=== PATIENT | male | born 1955 | race Caucasian/White ===

== ENCOUNTER 2016-05-13 14:56 | Inpatient (IN) | payer OTHER ==
[~2016-05-13] VITALS: Ht 165.1 cm; Wt 85.7 kg
--- NOTE | 2016-05-13 15:13 | NUR ---
DR WALLS VIEWED EKG - UNABLE TO SIGN DUE TO BEING STERILE PUTTING A CENTRAL LINE IN ANOTHER PATIENT. EKG PLACED WITH CHART - PLEASE HAVE SIGNED WHEN MD ABLE.
--- NOTE | 2016-05-13 15:13 | NUR ---
60 Y/O MALE C/O FEELING "HEART RACING, MY LEGS ARE HEAVY WHEN I WALK ... LIKE IM NOT GETTING ENOUGH AIR .. SWEATING .." - SYMPTOMS ONSET 0900 TODAY. ALSO FEELS SOB. DENIES PAIN. EKG COMPLETED AND SHOWS SINUS BRADYCARDIA WITH RATE 31. TAKEN TO ROOM 1 FOR EVAL/MONITORING.
--- NOTE | 2016-05-13 15:31 | ED CARDIAC/CP/PALPITATIONS ---
History of Present Illness General Chief Complaint: General Adult Stated Complaint: WEAKNESS/PALP/ELAVATED BLD SUGAR Exam Limitations: no limitations Vital Signs & Intake/Output Vital Signs & Intake/Output Vital Signs Date Time Temp Pulse Resp B/P Pulse O2 O2 Flow FiO2 Ox Delivery Rate 05/13 1922 94 Nasal 2.0L Cannula 05/13 1756 97.3 50 16 125/66 94 Nasal 2.0L Cannula 05/13 1607 55 16 130/66 93 Nasal 3.0L Cannula 05/13 1513 97.2 40 16 95/51 88 Room Air 05/13 1508 97.2 31 16 95/51 97 Room Air Allergies Coded Allergies: NO KNOWN ALLERGIES (08/04/11) Triage Note: 60 Y/O MALE C/O FEELING "HEART RACING, MY LEGS ARE HEAVY WHEN I WALK ... LIKE IM NOT GETTING ENOUGH AIR .. SWEATING .." - SYMPTOMS ONSET 0900 TODAY. ALSO FEELS SOB. DENIES PAIN. EKG COMPLETED AND SHOWS SINUS BRADYCARDIA WITH RATE 31. TAKEN TO ROOM 1 FOR EVAL/MONITORING. Triage Nurses Notes Reviewed? yes Onset: Abrupt Duration: hour(s):, constant, continues in ED Timing: recent history Quality/Severity: moderate, severe HPI: 60-year-old male comes into emergency room for further evaluation after feeling lightheaded and dizzy since this morning like he was going to pass out. Denies any chest pain. Some mild shortness of breath and diaphoretic. Patient sees a child and adolescent therapist out of [place]. Denies any other associated symptoms. Denies any pain anywhere currently. (VICKY HURTADO,KHADAR) General Source: patient Reconcile Medications Buprenorphine HCl/Naloxone HCl (Suboxone 8 MG-2 MG Sl Film) 8 MG-2 MG FILM 1 STR SL DAILY Mental health (Reported) Diltiazem HCl (Cardizem Cd) 360 MG CAP.ER.24H 1 CAP PO DAILY HTN (Reported) Glimepiride 1 MG TABLET 1 TAB PO DAILY DM (Reported) Lisinopril 20 MG TABLET 1 TAB PO DAILY HTN (Reported) Metformin HCl 1,000 MG TABLET 1 TAB PO BID DM (Reported) Nadolol 20 MG TABLET 1 TAB PO DAILY Heart health (Reported) Rosuvastatin Calcium (Crestor) 40 MG TABLET 1 TAB PO DAILY LIPID (Reported) Sitagliptin Phosphate (Januvia) 100 MG TABLET 1 TAB PO DAILY DM (Reported) Triamterene/Hydrochlorothiazid (Triamterene-Hctz 37.5-25 MG Tb) 37.5 MG-25 MG TABLET 1 TAB PO DAILY HTN (Reported) (KATE WALLS DO) Past History Travel History Traveled to [place] past 21 day No Medical History Any Pertinent Medical History? see below for history Neurological: NONE EENT: NONE Cardiovascular: hypertension, myocardial infarction, HIGH CHOLESTEROL Respiratory: NONE Gastrointestinal: NONE Hepatic: NONE Renal: NONE Musculoskeletal: NONE Psychiatric: NONE Endocrine: diabetes Blood Disorders: NONE Cancer(s): NONE REGISTRY NURSE/Reproductive: NONE Pneumonia Vaccine: 11/02/06 Surgical History Surgical History: non-contributory Psychosocial History What is your primary language Kazakh Tobacco Use: Quit >30 days ago Family History Hx Contributory? No (KHADAR TUBBS) Review of Systems Review of Systems Constitutional: Reports: see HPI. EENTM: Reports: no symptoms. Respiratory: Reports: see HPI. Cardiovascular: Reports: see HPI. GI: Reports: no symptoms. Genitourinary: Reports: no symptoms. Musculoskeletal: Reports: no symptoms. Skin: Reports: no symptoms. Neurological/Psychological: Reports: no symptoms. Hematologic/Endocrine: Reports: no symptoms. Immunologic/Allergic: Reports: no symptoms. All Other Systems: Reviewed and Negative (KHADAR TUBBS) Physical Exam Physical Exam General Appearance: well developed/nourished, alert, awake, mild distress Head: atraumatic Eyes: Bilateral: normal appearance, EOMI. Ears, Nose, Throat: normal pharynx, normal ENT inspection Neck: normal inspection Respiratory: normal breath sounds, no respiratory distress Cardiovascular: bradycardia Back: normal inspection Extremities: normal inspection, normal range of motion Neurologic/Psych: awake, alert, oriented x 3, normal gait, normal mood/affect Skin: intact, normal color Core Measures ACS in differential dx? No Severe Sepsis Present: No Septic Shock Present: No (KHADAR TUBBS) Progress Differential Diagnosis: AMI, aortic dissection, cholecystitis, CHF/pulm edema, costochondritis, hyperkalemia, hypovolemia, hyperthyroid, myocarditis, pancreatitis, pericarditis, pneumonia, pneumothorax, pulmonary embolism, PUD/ GERD, PVCs/PACs, respiratory failure, rib fracture, sepsis, unstable angina, V- fib/V-Tach, WPW syndrome Plan of Care: Orders Procedure Date/time Status Consistent Carbohydrate 2 05/14 B Active TROPONIN LEVEL 05/14 0500 Active ICU LAB BUNDLE 05/14 0500 Active EKG 05/14 0500 Active TROPONIN LEVEL 05/13 2130 Active EKG 05/13 2130 Active Wound Care/Dressing 05/13 192 Complete Weight 05/13 1921 Active VTE Mechanical Prophylaxis 05/13 192 Active Vital Signs 05/13 192 Active Turn and Reposition 05/13 192 Complete Drains/Tubes 05/13 192 Complete Teach/Educate 05/13 192 Active Skin Integrity Protocol 05/13 192 Complete Skin/Pressure Ulcer Assess (Sk 05/13 192 Active Precautions 05/13 192 Active Pain Treatment and Response 05/13 192 Active Nutritional Intake, Monitor 05/13 192 Active Isolation 05/13 192 Active CIWA 05/13 1920 Complete Patient Care Conference 05/13 192 Active Activity/Ambulation 05/13 192 Active Pathway - chart 05/13 1838 Active Telemetry/Solid Die Cutter 05/13 1756 Active VRE ACTIVE SURVIELLANCE 05/13 1744 Active ACTIVE SURVEILLANCE NARES 05/13 1744 Active Add-on Test (ER Only) 05/13 1741 Active Pathway - chart 05/13 1711 Active House Staff 05/13 1711 Active Patient Data 05/13 1711 Active Code Status 05/13 1711 Active Admit to inpatient 05/13 1707 Active Patient Data 05/13 1700 Active Intake & Output 05/13 1559 Active LYME TITRE 05/13 1526 Active THYROID STIMULATING HORMONE 05/13 1519 Complete TROPONIN LEVEL 05/13 1519 Complete COMPREHENSIVE METABOLIC PANEL 05/13 1519 Complete CBC WITHOUT DIFFERENTIAL 05/13 1519 Complete EKG 05/13 1458 Active ECHOCARDIOGRAM 05/13 0600 Active VTE Mechanical Prophylaxis 05/13 UNK Active FingerStick- Glucose 05/13 UNK Active Current Medications Sig/Luis Start time Last Medication Dose Stop Time Status Admin Atorvastatin Calcium 40 MG 1700 05/14 1700 AC (Lipitor) Insulin Aspart 0 TIDAC 05/14 0800 AC (NovoLOG) Acetaminophen 650 MG Q6P PRN 05/13 1845 AC (Tylenol) Acetaminophen 650 MG Q4P PRN 05/13 1845 AC (Tylenol) Acetaminophen 1,000 MG Q4P PRN 05/13 1845 AC (Tylenol) Laboratory Tests 05/13/16 1526: Anion Gap 11, Estimated GFR > 60, BUN/Creatinine Ratio 26.7 H, Glucose 353 H, Calcium 10.3 H, Total Bilirubin 0.6, AST 57, ALT 82 H, Alkaline Phosphatase 63 , Troponin I 0.19 *H, Total Protein 6.9, Albumin 4.1, Globulin 2.8, Albumin/ Globulin Ratio 1.5, TSH 2.550, CBC w Diff NO MAN DIFF REQ, RBC 5.21, MCV 88.5, MCH 28.6, RDW 13.9, MPV 8.4, Gran % 77.4 H, Lymphocytes % 13.1 L, Monocytes % 7.7, Eosinophils % 1.3, Basophils % 0.5, Absolute Granulocytes 8.3 H, Absolute Lymphocytes 1.4, Absolute Monocytes 0.8 H, Absolute Eosinophils 0.1, Absolute Basophils 0, PUBS MCHC 32.3 L, Lyme Disease Antibody Pending Microbiology 05/13 1916 UPPER RESP: Surveillance Culture - RECD 05/13 174 GI: Surveillance Culture - COLB Diagnostic Imaging: Viewed by Me: Radiology Read. Discussed w/RAD: Radiology Read. Radiology Impression: SERVICE DATE: 05/13/16 EXAM TYPE: RAD - XRY- PORTABLE CHEST XRAY EXAMINATION: XR PORTABLE CHEST CLINICAL INFORMATION: Shortness of breath. COMPARISON: Chest x-ray 11/01/2006 TECHNIQUE: Portable AP view of the chest was obtained. 3:41 PM FINDINGS: Status post median sternotomy. Heart size is normal. No pulmonary vascular congestion. No infiltrate or pleural effusion. No pneumothorax. IMPRESSION: No acute abnormality of the chest. Initial ED EKG: normal sinus rhythm, rate (30) Comments: 05/13/2016 5:55:14 PM Patient required critical care management upon arrival. Patient was seen immediately upon arrival. Dr. Walls. Was at bedside with the patient as well. Patient was given glucagon. Bradycardia improved. Blood pressure improved. Patient will require critical care in ICU for further evaluation and observation on cardiac cath tech. (KHADAR TUBBS) Departure Departure Disposition: STILL A PATIENT Condition: Stable Clinical Impression Primary Impression: Symptomatic sinus bradycardia Secondary Impressions: Elevated troponin Referrals: PATIENT HAS NO PRIMARY CARE DR Departure Forms: Customer Survey General Discharge Information (KHADAR TUBBS) Departure Comments 3/15/17 5 PM I have seen and personally examined the patient and I agree with the PAs evaluation. This is a 60-year-old man who presented to the emergency department with dizziness and diaphoresis. The patient states he was in his usual state of health until today. He said suddenly at 9 AM he started to feel weak and dizzy. He denies chest pain or shortness of breath. He had a resting heart rate in the 30s. EKG shows sinus bradycardia; he is on Nadolol he's been taking it for some time. The onset of symptoms was abrupt, the duration was just today, the severity is significant as his symptoms required to come to the emergency department for care. On physical exam he is awake alert and oriented 3. He is mildly diaphoretic. Heart is bradycardic; lungs are clear. His EKG shows a sinus bradycardia. He was given IV fluids. Dr. Warren was contacted and is admitting him to the ICU for further care. We will hold his enalapril and observe him on the monitor tech Admission Note Spoke With: BETTINA WARREN MD Documentation of Exam: Documentation of any treatments & extenuating circumstances including Concerns Regarding Discharge (functional status, medication knowledge or non-compliance, living conditions, etc.) that warrant an admission rather than observation: [The patient needs admission to the ICU for IV fluids, telemetry monitoring, cardiology consultation, follow the Lyme titer, consideration of pacemaker insertion, he has profound bradycardia] PA/CUSTOMER OPERATIONS REPRESENTATIVE Co-Sign Statement Statement: ED Attending supervision documentation- [] I saw and evaluated the patient. I have also reviewed all the pertinent lab results and diagnostic results. I agree with the findings and the plan of care as documented in the PA's/CUSTOMER OPERATIONS REPRESENTATIVE's documentation. [X] I have reviewed the ED Record and agree with the PA's/CUSTOMER OPERATIONS REPRESENTATIVE's documentation. [] Additions or exceptions (if any) to the PAs/CUSTOMER OPERATIONS REPRESENTATIVE's note and plan are summarized below: [] (KATE WALLS DO) Critical Care Note Critical Care Note Critical Care Time: 30-74 min (35) (KHADAR TUBBS)
[2016-05-13 15:42] LABS: ABSOLUTE BASOPHIL COUNT 0 /CUMM (0.0-0.2); ABSOLUTE EOSINOPHIL COUNT 0.1 /CUMM (0.0-0.7); ABSOLUTE GRANULOCYTE CT 8.3 /CUMM (1.4-6.5); ABSOLUTE LYMPH COUNT 1.4 /CUMM (1.2-3.4); ABSOLUTE MONOCYTE COUNT 0.8 /CUMM (0.10-0.60); BASOPHIL % 0.5 % (0.0-2.0); EOSINOPHIL % 1.3 % (0-5); GRANULOCYTE % 77.4 % (42.2-75.2); HEMATOCRIT 46.1 % (42-52); MEAN CORPUSCULAR HGB 28.6 PG (27.0-31.0); MEAN CORPUSCULAR HGB CONC 32.3 G/DL (33.0-37.0); MEAN CORPUSCULAR VOLUME 88.5 FL (80.0-94.0); MEAN PLATELET VOLUME 8.4 FL (7.4-10.4); PLATELET COUNT 241 /CUMM (130-400); RBC DISTRIBUTION WIDTH 13.9 % (11.5-14.5); RED BLOOD CELL CT 5.21 /CUMM (4.70-6.10); WHITE BLOOD CELL COUNT 10.7 /CUMM (4.8-10.8)
--- NOTE | 2016-05-13 15:43 | NUR ---
RADIOLOGY TO BEDSIDE FOR PCXY.
--- NOTE | 2016-05-13 15:51 | NUR ---
pt rate at 33 and regular, slow ppush of glucagon given over 3 minutes, pt tolerated well. will continue to monitor closely
--- NOTE | 2016-05-13 15:55 | NUR ---
PT CARE ASSUMED BY THIS RN AT THIS TIME. PT LAYING ON STRETCHER WITH EYES CLOSED. REPORTS HE FEELS BETTER DENIES CP, SOB. PT SPOUSE REPORTS OR WHEN HE WAS 33 AND QUADRUPLE BYPASS IN 1991. NS BOLUS HUNG PER EMAR. PT CONTINUES ON MONITOR HR SB IN THE 30'S, PACER PADS IN PLACE.
--- NOTE | 2016-05-13 16:00 | NUR ---
PT RATE NOTED TI IN THE 50'S SINUS JOON AT THIS TIME.
--- NOTE | 2016-05-13 16:16 | RADIOLOGY REPORT ---
EXAMINATION: XR PORTABLE CHEST CLINICAL INFORMATION: Shortness of breath. COMPARISON: Chest x-ray 11/01/2006 TECHNIQUE: Portable AP view of the chest was obtained. 3:41 PM FINDINGS: Status post median sternotomy. Heart size is normal. No pulmonary vascular congestion. No infiltrate or pleural effusion. No pneumothorax. IMPRESSION: No acute abnormality of the chest.
--- NOTE | 2016-05-13 16:41 | NUR ---
CRITICAL TEST RESULTS [id number] SHANTELLE ALICEA 60 M TESTS AND RESULTS: TROPONIN .19 Results received and read back by: SKYE CULLEN Results received date and time: 05/13/16 1641 The following provider was notified of the results, and read the results back: GENESIS PERRY Notified date and time: 05/13/16 at 1641
--- NOTE | 2016-05-13 17:14 | History & Physical ---
NICOLE JOHNSON MD 05/13/16 7494: General Information and HPI MD Statement: I have seen and personally examined SHANTELLE ALICEA and documented this H&P. The patient is a 60 year old M who presented with a patient stated chief complaint of [weakness]. Source of Information: patient Exam Limitations: no limitations History of Present Illness: 60-year-old male with PMH of HTN, MIX2 (sp stent and quadruple bypass), NIDDM, HLD, opiate dependence on suboxone, presented to ED for weakness, shortness of breath, diaphoresis, heavy legs and arms on exertion, with feelings of heart racing that started at 830 or 9am the day of admission. He felt like he was having an anxiety attack. He took 2 pills of baby aspirin prior to coming to ED. Initial EKG showed sinus bradycardia, in low 30s, which could be medication induced as pt takes nadolol and diltiazem. Pt received glucagon and 1L nS in the ED. His Bp was initially 95/51, subsequently improved to 130/60. During our examination, his HR ranged between 55-60 and pt was feeling improved, stating that "maybe I shouldn't have came". However, he was noted to prefer having his eyes closed during history and physical exam, reportedly because he was feeling tired because he has not had a good night sleep. He also reports neck stiffness that has been chronic. Although he said he was feeling better, he was noticably fatigued. He had his first IA when he was 33, for which he was stented. At the age of 43, he had another IA for which he had quadruple bypass. During those episodes, he only reported jaw pain, denies chest pain and arm pain. Currently denying pain anywhere and does not feel this is another episode of IA. However, he is diabetic. He follows up with Dr. Eric Chávez at [place] for cardiology. He has > 80 pack year smoking hx, quit 2 years ago, now vaping. He had opiate dependence, quit in 2005, now on suboxone. He denies dizziness. His belly was noticably distended, however that has been chronic, and he has abdominal hernia. Allergies/Medications Allergies: Coded Allergies: NO KNOWN ALLERGIES (08/04/11) Home Med list Buprenorphine HCl/Naloxone HCl (Suboxone 8 MG-2 MG Sl Film) 8 MG-2 MG FILM 1 STR SL DAILY Mental health (Reported) Diltiazem HCl (Cardizem Cd) 360 MG CAP.ER.24H 1 CAP PO DAILY HTN (Reported) Glimepiride 1 MG TABLET 1 TAB PO DAILY DM (Reported) Lisinopril 20 MG TABLET 1 TAB PO DAILY HTN (Reported) Metformin HCl 1,000 MG TABLET 1 TAB PO BID DM (Reported) Nadolol 20 MG TABLET 1 TAB PO DAILY Heart health (Reported) Rosuvastatin Calcium (Crestor) 40 MG TABLET 1 TAB PO DAILY LIPID (Reported) Sitagliptin Phosphate (Januvia) 100 MG TABLET 1 TAB PO DAILY DM (Reported) Triamterene/Hydrochlorothiazid (Triamterene-Hctz 37.5-25 MG Tb) 37.5 MG-25 MG TABLET 1 TAB PO DAILY HTN (Reported) Past History Travel History Traveled to [place] past 21 day No Medical History Neurological: NONE EENT: NONE Cardiovascular: hypertension, myocardial infarction, HIGH CHOLESTEROL Respiratory: NONE Gastrointestinal: NONE Hepatic: NONE Renal: NONE Musculoskeletal: NONE Psychiatric: NONE Endocrine: diabetes Blood Disorders: NONE Cancer(s): NONE SUPPLY CHAIN TECH/Reproductive: NONE Pneumonia Vaccine: 11/02/06 Surgical History Surgical History: quadruple bypass Past Family/Social History Family History Relations & Conditions if any Relation not specified for: FH: diabetes mellitus Psychosocial History Where do you live? Home Who Do You Live With? spouse Smoking Status: Former Smoker Illicit Drug Use: denies illicit drug use Functional Ability ADLs Independent: dressing, eating, toileting, bathing. Ambulation: independent IADLs Independent: shopping, housework, finances, food prep, telephone, transportation , medication admin. Review of Systems Review of Systems Constitutional: Reports: malaise, weakness. Denies: chills, fever. EENTM: Denies: visual changes. Cardiovascular: Reports: palpitations. Denies: chest pain, edema, orthopena, peripheral edema, syncope. Respiratory: Reports: short of breath. Denies: cough, sputum production. GI: Denies: abdominal pain, bloating, constipation, diarrhea. Genitourinary: Denies: dysuria. Exam & Diagnostic Data Last 24 Hrs of Vital Signs/I&O Vital Signs Date Time Temp Pulse Resp B/P Pulse O2 O2 Flow FiO2 Ox Delivery Rate 05/13 1756 97.3 50 16 125/66 94 Nasal 2.0L Cannula 05/13 1607 55 16 130/66 93 Nasal 3.0L Cannula 05/13 1513 97.2 40 16 95/51 88 Room Air 05/13 1508 97.2 31 16 95/51 97 Room Air Intake & Output 05/13 1600 05/13 0800 05/13 0000 Intake Total 1000 Output Total Balance 1000 Intake, IV 1000 Patient 85.275 kg Weight Physical Exam General Appearance Alert, Oriented X3, Cooperative, seems fatigued Skin No Significant Lesion HEENT Atraumatic Cardiovascular Normal S1, Normal S2 Lungs Clear to Auscultation, Normal Air Movement Abdomen Normal Bowel Sounds, Soft, No Tenderness, abdominal hernia Neurological Normal Speech Extremities No Edema Last 24 Hrs of Labs/Thomas: Laboratory Tests 05/13/16 1526: Anion Gap 11, Estimated GFR > 60, BUN/Creatinine Ratio 26.7 H, Glucose 353 H, Calcium 10.3 H, Total Bilirubin 0.6, AST 57, ALT 82 H, Alkaline Phosphatase 63 , Troponin I 0.19 *H, Total Protein 6.9, Albumin 4.1, Globulin 2.8, Albumin/ Globulin Ratio 1.5, TSH 2.550, CBC w Diff NO MAN DIFF REQ, RBC 5.21, MCV 88.5, MCH 28.6, RDW 13.9, MPV 8.4, Gran % 77.4 H, Lymphocytes % 13.1 L, Monocytes % 7.7, Eosinophils % 1.3, Basophils % 0.5, Absolute Granulocytes 8.3 H, Absolute Lymphocytes 1.4, Absolute Monocytes 0.8 H, Absolute Eosinophils 0.1, Absolute Basophils 0, PUBS MCHC 32.3 L, Lyme Disease Antibody Pending Microbiology 05/14 1743 UPPER RESP: Surveillance Culture - COLB 05/14 1743 GI: Surveillance Culture - COLB Diagnostic Data EKG Results SB in low 30s CXR Results No acute abnormality of the chest. Assessment/Plan Assessment: 60-year-old male with PMH of HTN, MIX2 (sp stent and quadruple bypass), NIDDM, HLD, opiate dependence on suboxone, presented to ED for weakness, shortness of breath, diaphoresis, heavy legs and arms on exertion, with feelings of heart racing. Initial EKG showed sinus bradycardia, in low 30s, which could be medication induced as pt takes nadolol and diltiazem, and BP of 95/51. HR and BP improved with glucagon and 1L NS. During our examination, his HR ranged between 55-60 and pt was feeling improved.Pt might also have NSTEMI (positive troponin, positive history). Pt admitted to ICU with the following active problems: # Symptomatic sinus bradycardia could be medication induced # Positive troponin could be NSTEMI vs type II IA # Hyponatremia, Elevated K,Bun,Cr, hyperglycemia # History of HTN and HLD # NIDDM # Symptomatic sinus bradycardia - Given glucagon X1 and 1L NS in ED - Desat to 88% on RA * Hold nadolol and diltiazem * Pacer and atropine at bedside * Follow Echocardiogram * Follow lyme ab * Keep on O2 via NC to keep spo2 > 92% # Positive troponin worrisome for NSTEMI, 0.19. Pt had history of IA at a young age, 33 (had stent), 43 (had quadruple bypass), with only jaw pain. He also has diabetes which could mask typical chest pain in ACS. * Serial EKG and trop 930pm and 530am * Consider starting heparin drip for NSTEMI if troponin continues to increase # History of HTN and HLD * Continue statin * Hold lisinopril, hctz, triamterene for hypotension in ed # Hyponatremia, Elevated K,Bun,Cr, hyperglycemia - On admission Na 133, K 5.9, Bun 32, Cr 1.2 , glucose 353 * Trend it # NIDDM * Hold home glimepiride, metformin januvia * Accucheck and Novolog ss # Hx of abdominal hernia # Hold home meds Suboxone Diet: CC2 DVT ppx: mech and pharm FULL CODE As Ranked By This Provider Problem List: 1. Symptomatic sinus bradycardia 2. Elevated troponin Core Measures/Miscellaneous Acute Coronary Syndrome ACS Diagnosis: No Cerebrovascular Accident CVA/TIA Diagnosis: No Congestive Heart Failure CHF Diagnosis: No Venous Thromboembolism VTE Risk Factors: Age > 40 No Mech VTE prophylaxis d/t: No contraindications No VTE Pharm Prophylaxis d/t: No contraindications VTE Diagnosis: No VTE Type: NONE VTE Confirmed by (Test): NONE Severe Sepsis Severe Sepsis Present: No Septic Shock Septic Shock Present: No Miscellaneous Documentation Attending Case Discussed With: BETTINA WARREN MD Primary Care Physician: FORTINO LIZARRAGA MD Patient sees these Specialists Dr. Eric Chávez in [place] (cardiology) Level of Patient Care: Critical Care (CRI) RAGINI AREVALO 05/13/16 6938: Resident Review Statement Resident Statement: examined this patient, discussed with internal combustion engine subassembler, agreed with internal combustion engine subassembler, discussed with family, reviewed EMR data (avail), discussed with nursing , discussed with case mgmt, reviewed images, amended to note Other Findings: 60-year-old gentleman presented at the emergency room with a complaint of generalized weakness. Patient reports around 9 AM this morning he started feeling extremely tired and clammy. His symptoms tend to aggravate with physical exertion and improved with rest. During the day his symptomatology persisted and opted him to present to the emergency room for further workup. patinet denies any other major significant change in his health. He denies any associated symptoms of chest pain, lightheadedness, dizziness, breathlessness, loss of consciousness the/fall, focal neurologic changes(change in vision, focal motor sensory deficits). He is a former heavy smoker 2 packs per day for more than 40 years quit 2 years ago, hypertension, DM, Hx of IA, status post stent placement 35 years ago and triple or quadruple bypass about 25 years ago, for which she follows with his sander wooden pencils, Eric Lorenzo M.D. he is on diltiazem, nadolol, triamterene/HCTZ, and lisinopril. According to patient this morning despite not feeling well he took all his a.m. pills. Has a history of opiate abuse quit about 2 years ago currently on Suboxone denies any recent use of opiods. 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 Review of system: Patient reports extreme fatigue and sleepiness. Physical exam : General appearance alert and oriented 3 not in acute distress, follows verbal commands. Head and neck: dry Mucous membranes no JVD, CV: S1 S2 no murmur, lungs are clear, no peripheral edema no cyanosis, FRUIT SORTER: wnl. Neurology exam: No focal motor sensory deficit. Initial vital signs: Pulse rate of 40 blood pressure 95/51, O2 saturation 88% in room air. Patient was administered glucagon and 1 L bolus normal saline and bradycardia improved, from heart rate of 32 heart rate of 40-50 beats per minutes. Patient remained hemodynamically stable and asymptomatic. Latest vital signs: Pulse rate 50, blood pressure 125/66 pulse ox 94 on 2 L. Chest x-ray: No acute abnormality was reported. ECG: Sinus bradycardia with rate of 30-40, normal axis, no acute ST-T segment change, no prolongation of MI no prolongation of QT. CBC: wnl BEP: Sodium 133 potassium 5.9 BUN 32 creatinine 1.2 BUN/creatinine ratio 26.7 troponin 0.19 NICO score: 4 associatd w/ 20% mortality moderate risk group Assessment 60-year-old gentleman with significant cardiac history was admitted for symptomatic sinus bradycardia and elevated troponin. List of active problems 1) sinus bradycardia: Patient is hemodynamically stable and his bradycardia improved with glucagon. Except for elevated troponin patient does not have any other concerning findings. Except for IA which needs to be ruled out, hypothyroidism is another differential diagnosis, patient does not have any symptoms of active infection, and other alternative diagnosis for this patient is a side effect of his medication including beta blockers and nondeviated. Calcium channel blockers. 2) elevated troponin: Secondary to severe bradycardia versus NSTEMI or unstable angina 3) DM 4) hyperkalemia and elevated creatinineL: Could be related to dehydration VS diabetic nephropathy with exaggerated hyperkalemia due to use of lisinopril Plan #1 admit to ICU for continuous monitoring #2 IV atropine 0.5 mg push at bedside for episodes of symptomatic bradycardia #3 if bradycardia did not improve with repeated doses of atropine patient probably needs percutaneous pacemaker #4 stop his AV blocking medication including beta blockers and nondeviated refraining calcium channel blockers #5 stop his antihypertensive medication until tomorrow morning- lisinopril and trimethoprim/hydrochlorothiazide #6 continue IV hydration with normal saline 100 mL per hour #7 obtained records from his sander wooden pencils #8 check TSH- normal #9 check lyme titer-pending #10 Echo Elevated troponin #1 trending troponin every 8 hours+ ecg #2 if troponin was trending of initiates managing NSTEMI: load w/ ASA 325 mg + nitrate SL + morphine #3 continue his daily lipitpor #4 patient is not in respiratory distress there is no need for oxygen supplementation unless patient desaturated DM #1 Carbohydrates diets 2 #2 fingersticks 3 times a day before meals #3 stop metformin and Januvia, start on NovoLog sliding scale medium dose pre- meal and at bedtime Hyperkalemia and elevated creatinine: #1 IV hydration #2 ICU bundle in the a.m. #3 possible nephro consult as an outpatient to consider the need of renal biopsy Mild pain pathway-on Suboxone cannot take opiate pain medication Full code KELVIN ASHLEY,BETTINA 05/14/16 1019: Attending MD Review Statement Attending Statement Attending MD Statement: examined this patient, discuss w/resident/PA/CONTRACTING ENGINEER, agreed w/resident/PA/CONTRACTING ENGINEER, discussed with family, reviewed EMR data (avail), discussed with nursing, reviewed images, amended to note Attending Assessment/Plan: Agree with housestaff note above. The patient is a 60-year-old male with history of hypertension, diabetes mellitus, CAD, myocardial infarction, status post CABG and coronary stents who is admitted for bradycardia. He presented to the emergency department with complaint of weakness, heaviness in his legs, and palpitations. He was noted to be in sinus bradycardia in the 30s. His sander wooden pencils is Dr. Lorenzo in [place]. He takes both Cardizem CD and atenolol. He notes that in the past he has had similar symptoms when he accidentally took more than one pill. He states that it is possible that he could've accidentally taken an extra dose of one of his medications accidentally. No chest pain. No shortness of breath. No diaphoresis. No syncope. Review of systems: No fever. No chills. No rash. No tremor. All other systems were reviewed, and were noted to be negative. Vital Signs Date Time Temp Pulse Resp B/P Pulse O2 O2 Flow FiO2 Ox Delivery Rate 05/14 0800 95 Nasal 3.0L Cannula 05/14 0800 97.7 54 18 137/78 95 Nasal 3.0L Cannula 05/14 0400 Nasal 3.0L Cannula 05/14 0000 Nasal 3.0L Cannula 05/14 0000 97.1 52 14 124/68 97 Nasal 3.0L Cannula 05/13 1922 94 Nasal 2.0L Cannula 05/13 1756 97.3 50 16 125/66 94 Nasal 2.0L Cannula 05/13 1607 55 16 130/66 93 Nasal 3.0L Cannula 05/13 1513 97.2 40 16 95/51 88 Room Air 05/13 1508 97.2 31 16 95/51 97 Room Air Physical examination: Gen: The patient is in no acute distress HEENT: Normal nose, ears, and oropharynx. Pupils equal bilaterally. Conjunctiva normal. Neck: Supple with no JVD, no masses, and no thyromegaly Lungs: Clear to auscultation with normal respiratory effort Heart: RRR, S1, S2, no murmurs. No peripheral edema, 2+ pulses in the lower extremities bilaterally Abdomen: Soft, nontender, no masses. No hepatomegaly. No splenomegaly Extremities: No clubbing or cyanosis. Normal muscle strength in the upper and lower extremities Skin: Normal skin turgor with no skin ulcers or lesions noted. Neuro: Cranial nerves intact. Sensation intact Psych: Alert and oriented 3 with appropriate affect Laboratory Tests 05/14 05/13 05/13 0500 2200 1526 Chemistry Sodium (137 - 145 mmol/L) 141 133 L Potassium (3.5 - 5.1 mmol/L) 3.9 5.9 H Chloride (98 - 107 mmol/L) 102 97 L Carbon Dioxide (22 - 30 mmol/L) 30 25 Anion Gap (5 - 16) 9 11 BUN (9 - 20 mg/dL) 20 32 H Creatinine (0.7 - 1.2 mg/dL) 0.8 1.2 Estimated GFR (>60 ml/min) > 60 > 60 BUN/Creatinine Ratio (7 - 25 %) 26.7 H Glucose (65 - 99 mg/dL) 108 H 353 H Calcium (8.4 - 10.2 mg/dL) 9.5 10.3 H Phosphorus (2.5 - 4.5 mg/dL) 4.5 Magnesium (1.6 - 2.3 mg/dL) 1.5 L Total Bilirubin (0.2 - 1.3 mg/dL) 0.5 0.6 AST (17 - 59 U/L) 40 57 ALT (21 - 72 U/L) 69 82 H Alkaline Phosphatase (< 127 U/L) 63 Troponin I (<0.11 ng/ml) 0.11 *H 0.10 0.19 *H Total Protein (6.3 - 8.2 g/dL) 6.9 Albumin (3.5 - 5.0 g/dL) 3.6 4.1 Globulin (1.9 - 4.2 gm/dL) 2.8 Albumin/Globulin Ratio (1.1 - 2.2 %) 1.5 TSH (0.270 - 4.200 uIU/mL) 2.550 Hematology CBC w Diff NO MAN DIFF REQ WBC (4.8 - 10.8 /CUMM) 10.7 RBC (4.70 - 6.10 /CUMM) 5.21 Hgb (14.0 - 18.0 G/DL) 14.9 Hct (42 - 52 %) 46.1 MCV (80.0 - 94.0 FL) 88.5 MCH (27.0 - 31.0 PG) 28.6 RDW (11.5 - 14.5 %) 13.9 Plt Count (130 - 400 /CUMM) 241 MPV (7.4 - 10.4 FL) 8.4 Gran % (42.2 - 75.2 %) 77.4 H Lymphocytes % (20.5 - 51.1 %) 13.1 L Monocytes % (1.7 - 9.3 %) 7.7 Eosinophils % (0 - 5 %) 1.3 Basophils % (0.0 - 2.0 %) 0.5 Absolute Granulocytes (1.4 - 6.5 /CUMM) 8.3 H Absolute Lymphocytes (1.2 - 3.4 /CUMM) 1.4 Absolute Monocytes (0.10 - 0.60 /CUMM) 0.8 H Absolute Eosinophils (0.0 - 0.7 /CUMM) 0.1 Absolute Basophils (0.0 - 0.2 /CUMM) 0 PUBS MCHC (33.0 - 37.0 G/DL) 32.3 L Serology Lyme Disease Antibody Pending EKG tracings are independently reviewed. EKG from 1505 on 05/13 reveals sinus bradycardia at 30. EKG from 2151 on 05/13 reveals sinus rhythm at 52. EKG from 05/14 reveals sinus bradycardia at 53. Chest x-ray: Negative Assessment: 1. Diabetes mellitus 2. Hypertension 3. CAD, status post CABG and stents 4. Opiate dependence on Suboxone Plan: * Keep off diltiazem and nadolol given profound sinus bradycardia on presentation * Transfer to telemetry floor. * Hypertension medications on hold given recent hypotension. * Echo pending * Likely ready for discharge tomorrow if stable.
--- NOTE | 2016-05-13 17:27 | NUR ---
PT GOING TO ROOM 105-1.
[2016-05-13] MEDS ORDERED: CARDIZEM CD360 M1 PO (18:31)
[2016-05-13] MEDS ORDERED: NADOLOL20 M1 PO (18:31)
[2016-05-13] MEDS ORDERED: LISINOPRIL20 M1 PO (18:31)
[2016-05-13] MEDS ORDERED: CRESTOR40 M2 PO (18:32)
[2016-05-13] MEDS ORDERED: TRIAMTERENE-HC1 EAC1 PO (18:32)
[2016-05-13] MEDS ORDERED: JANUVIA100 M1 PO (18:32)
[2016-05-13] MEDS ORDERED: METFORMIN HCL1000 M1 PO (18:32)
[2016-05-13] MEDS ORDERED: SUBOXONE 8 MG-1 EACH SL (18:32)
[2016-05-13] MEDS ORDERED: GLIMEPIRIDE1 M1 PO (18:33)
--- NOTE | 2016-05-13 18:42 | NUR ---
REPORT GIVEN TO ALTAGRACIA DAMIAN. [facility] CALLED FOR PT TRANSPORT.
--- NOTE | 2016-05-13 20:15 | NUR ---
1914= RECEIVED PT FROM ER. A/OX3 NC/2L NO RESP DISTRESS. LUNGS CLEAR. DENIES CHEST PAIN. SB 48-55. SBP 120'S. +BS. DELONTE DIET WELL. INFORMED TO USE URINAL. IVF 100ML/HR X1BAG. DENIES PAIN. SKIN INTACT. WILL CONT TO MONITOR.
[2016-05-14] VITALS: BP 124/68
[2016-05-14 08:00] VITALS: BP 137/78
--- NOTE | 2016-05-14 08:24 | PN- Housestaff ---
Subjective Follow-up For: symptomatic sinus bradycardia Tele-Events Since Last Visit: SB 50-56 Subjective: Pt seen this morning, he was sitting at the edge of the bed, wanting to get up. Already put an order for OOB. He feels completely at baseline currently, with HR in the low 60s while I was seeing him. Still on oxygen but denies shortness of breath, will wean o2. Last trop at 11am today. K improved from 5.9 to 3.9. Na improved from 133 to 141. Mag low at 1.5, repleted Review of Systems Constitutional: Reports: see HPI. Denies: chills, fever. EENTM: Denies: visual changes. Cardiovascular: Denies: chest pain. Respiratory: Denies: cough, short of breath, sputum production. Gastrointestinal: Denies: abdominal pain. Genitourinary: Denies: dysuria. Objective Last 24 Hrs of Vital Signs/I&O Vital Signs Date Time Temp Pulse Resp B/P Pulse O2 O2 Flow FiO2 Ox Delivery Rate 05/14 0800 95 Nasal 3.0L Cannula 05/14 0800 97.7 54 18 137/78 95 Nasal 3.0L Cannula 05/14 0400 Nasal 3.0L Cannula 05/14 0000 Nasal 3.0L Cannula 05/14 0000 97.1 52 14 124/68 97 Nasal 3.0L Cannula 05/13 1922 94 Nasal 2.0L Cannula 05/13 1756 97.3 50 16 125/66 94 Nasal 2.0L Cannula 05/13 1607 55 16 130/66 93 Nasal 3.0L Cannula 05/13 1513 97.2 40 16 95/51 88 Room Air 05/13 1508 97.2 31 16 95/51 97 Room Air Intake & Output 05/14 1600 05/14 0800 05/14 0000 Intake Total 950 412 Output Total 600 450 Balance 350 -38 Intake, IV 600 212 Intake, Oral 350 200 Number 0 0 Bowel Movements Output, Urine 600 450 Patient 85.729 kg Weight Physical Exam General Appearance: Alert, Oriented X3, Cooperative, No Acute Distress Skin: No Significant Lesion HEENT: Atraumatic Neck: Supple Cardiovascular: Regular Rate, Normal S1, Normal S2, No Murmurs, Gallops, Rubs Lungs: Clear to Auscultation, Normal Air Movement Abdomen: Normal Bowel Sounds, Soft, No Tenderness Neurological: Normal Speech Current Medications: Current Medications Sig/Luis Start time Last Medication Dose Route Stop Time Status Admin Acetaminophen 650 MG Q6P PRN 05/13 184 AC PO Acetaminophen 650 MG Q4P PRN 05/13 184 AC PO Acetaminophen 1,000 MG Q4P PRN 05/13 184 AC PO Atorvastatin Calcium 40 MG 1700 05/14 1700 AC PO Glucagon 1 MG ONCE ONE 05/13 1530 DC 05/13 IV PUSH 05/13 1531 1524 Glucagon 0 .STK-MED ONE 05/13 1523 DC .ROUTE Insulin Aspart 0 TIDAC 05/14 0800 AC SC Magnesium Sulfate 1 GM Q2H 05/14 0845 AC 05/14 Dextrose/Water 100 ML IV 05/14 1244 1003 Sodium Chloride 1,000 ML ONCE ONE 05/13 1900 DC 05/13 IV 05/14 0459 1950 Sodium Chloride 1,000 ML BOLUS ONE 05/13 1530 DC 05/13 IV 05/13 1629 1554 Last 24 Hrs of Lab/Thomas Results Last 24 Hrs of Labs/Mics: Laboratory Tests 05/14/16 1115: Troponin I Pending 05/14/16 0500: Anion Gap 9, Estimated GFR > 60, Glucose 108 H, Calcium 9.5, Phosphorus 4.5, Magnesium 1.5 L, Total Bilirubin 0.5, AST 40, ALT 69, Troponin I 0.11 *H, Albumin 3.6 05/13/16 2200: Troponin I 0.10 05/13/16 1526: Anion Gap 11, Estimated GFR > 60, BUN/Creatinine Ratio 26.7 H, Glucose 353 H, Calcium 10.3 H, Total Bilirubin 0.6, AST 57, ALT 82 H, Alkaline Phosphatase 63 , Troponin I 0.19 *H, Total Protein 6.9, Albumin 4.1, Globulin 2.8, Albumin/ Globulin Ratio 1.5, TSH 2.550, CBC w Diff NO MAN DIFF REQ, RBC 5.21, MCV 88.5, MCH 28.6, RDW 13.9, MPV 8.4, Gran % 77.4 H, Lymphocytes % 13.1 L, Monocytes % 7.7, Eosinophils % 1.3, Basophils % 0.5, Absolute Granulocytes 8.3 H, Absolute Lymphocytes 1.4, Absolute Monocytes 0.8 H, Absolute Eosinophils 0.1, Absolute Basophils 0, PUBS MCHC 32.3 L, Lyme Disease Antibody Pending Microbiology 05/13 1916 UPPER RESP: Surveillance Culture - RECD 05/14 1743 GI: Surveillance Culture - COLB Assessment/Plan Assessment: 60-year-old male with PMH of HTN, MIX2 (sp stent and quadruple bypass), NIDDM, HLD, opiate dependence on suboxone, presented to ED for weakness, shortness of breath, diaphoresis, heavy legs and arms on exertion, with feelings of heart racing. Initial EKG showed sinus bradycardia, in low 30s, which could be medication induced as pt takes nadolol and diltiazem, and BP of 95/51. HR and BP improved with glucagon and 1L NS. During our examination, his HR ranged between 55-60 and pt was feeling improved. Pt might also have NSTEMI (positive troponin, positive history). No heparin drip started, and pt's troponin drifted down after the first one. Pt admitted to ICU with the following active problems: # Symptomatic sinus bradycardia could be medication induced # Positive troponin most likely demand ischemia # Hyponatremia, Elevated K,Bun,Cr, hyperglycemia # History of HTN and HLD # NIDDM # Symptomatic sinus bradycardia most likely medication induced - Given glucagon X1 and 1L NS in ED - Desat to 88% on RA - Echocardiogram: Normal size left ventricle. Mild concentric left ventricular hypertrophy. Normal left ventricular ejection fraction visually estimated at >60 %. Normal left ventricular wall motion. Mild left atrial dilatation. Mild tricuspid regurgitation. Trace mitral regurgitation. * Hold nadolol and diltiazem * Pacer and atropine at bedside * Follow lyme ab * Keep on O2 via NC to keep spo2 > 92%, wean o2 as tolerated (desat to 88% on RA in ED) # Positive troponin 0.19, most likely demand ischemia. Pt had history of [place] at a young age, 33 (had stent), 43 (had quadruple bypass), with only jaw pain. He also has diabetes which could mask typical chest pain in ACS. * Serial EKG and trops negative * No heparin drip started # History of HTN and HLD * Continue statin * Hold lisinopril, hctz, triamterene for hypotension in ED # Hyponatremia, Elevated K,Bun,Cr, hyperglycemia resolved - On admission Na 133, K 5.9, Bun 32, Cr 1.2 , glucose 353 - Improved to na 141,K3.9, bun 20, cr 0.8, glucose 108 * Trend it # Hypomag - Mag 1.5 * Repleted with 2gms of mag sulf # NIDDM * Hold home glimepiride, metformin januvia * Accucheck and Novolog ss # Hx of abdominal hernia # Hold home meds Suboxone Diet: CC2 DVT ppx: mech and pharm FULL CODE Problem List: 1. Elevated troponin 2. Symptomatic sinus bradycardia Pain Ratin Pain Location: none Pain Goal: Remain pain free Pain Plan: none Tomorrow's Labs & Rationales: bep and mag for electrolyte abnormalities DVT/Prophylaxis: mechanical, pharmacological
--- NOTE | 2016-05-14 11:29 | ECHOCARDIOGRAM REPORT ---
SHANTELLE ALICEA Age: 60 : 1955 Gender: M Exam Date: 05/13/2016 19:49 Exam Location: [facility] Ht (in): 65 Wt (lb): 188 BSA: 2.01 BP: 125 / 66 Ordering Physician: RAGINI AREVALO MD Referring Physician: Mat Triana MD Technologist: Jaymie Domingo [facility] Room Number: [id number] Indications: PALPITATIONS Rhythm: Sinus Technical Quality: Technically difficult study FINDINGS Left Ventricle Normal size left ventricle. Mild concentric left ventricular hypertrophy. Normal left ventricular ejection fraction visually estimated at >60%. Normal left ventricular wall motion. Right Ventricle Normal right ventricular size and function. Right Atrium Normal right atrial size. Left Atrium Mild left atrial dilatation. Mitral Valve Moderate mitral annular calcification. Mitral valve thickened. Trace mitral regurgitation. Aortic Valve Aortic valve mildly thickened.no aortic stenosis. No aortic regurgitation. Tricuspid Valve Tricuspid valve not well visualized, grossly normal. Mild tricuspid regurgitation. Pulmonic Valve Pulmonic valve not well visualized, grossly normal. Pericardium No pericardial effusion. Great Vessels Normal size aortic root. CONCLUSIONS Normal size left ventricle. Mild concentric left ventricular hypertrophy. Normal left ventricular ejection fraction visually estimated at > 60%. Mild left atrial dilatation. Mild tricuspid regurgitation. Trace mitral regurgitation. Mat Triana M.D. (Electronically Signed) Final Date: 14 May 2016 11:28 MEASUREMENTS (Male / Female) Normal Values 2D ECHO LV Diastolic Diameter PLAX 4.8 cm 4.2 - 5.9 / 3.9 - 5.3 cm LV Systolic Diameter PLAX 2.8 cm 2.1 - 4.0 cm LV Fractional Shortening PLAX 41.7 % 25 - 46 % LV Ejection Fraction 2D Teich 72.5 % IVS Diastolic Thickness 1.2 cm LVPW Diastolic Thickness 1.2 cm LV Relative Wall Thickness 0.5 RV Internal Dim ED PLAX 2.7 cm 1.9 - 3.8 cm LVOT Diameter 2.1 cm Aortic Root Diameter 3.1 cm LA Systolic Diameter LX 4.5 cm 3.0 - 4.0 / 2.7 - 3.8 cm LA Volume 35.0 cm 18 - 58 / 22 - 52 cm Ascending Aorta Diameter 3.1 cm DOPPLER AV Peak Velocity 127.0 cm/s AV Peak Gradient 6.5 mmHg AV Mean Velocity 92.4 cm/s AV Mean Gradient 4.0 mmHg AV Velocity Time Integral 32.8 cm LVOT Peak Velocity 84.2 cm/s LVOT Peak Gradient 2.8 mmHg LVOT Mean Velocity 60.0 cm/s LVOT Mean Gradient 2.0 mmHg LVOT Velocity Time Integral 20.5 cm LVOT Stroke Volume 71.0 cm AV Area Cont Eq vti 2.2 cm AV Area Cont Eq pk 2.3 cm MV Peak Velocity 118.0 cm/s MV Peak Gradient 5.6 mmHg MV Mean Velocity 49.6 cm/s MV Mean Gradient 1.0 mmHg Mitral E Point Velocity 101.0 cm/s Mitral A Point Velocity 101.0 cm/s Mitral E to A Ratio 1.0 MV PHT Velocity 121.0 cm/s MV Deceleration Hayes 595.0 cm/s MV Pressure Half Time 61.0 ms MV Area PHT 3.6 cm MV Deceleration Time 218.0 ms TR Peak Velocity 218.0 cm/s TR Peak Gradient 19.0 mmHg Right Atrial Pressure 5.0 mmHg Pulmonary Artery Systolic Pressu 24.0 mmHg Right Ventricular Systolic Press 24.0 mmHg PV Peak Velocity 96.5 cm/s PV Peak Gradient 3.7 mmHg PV Mean Velocity 62.9 cm/s PV Mean Gradient 2.0 mmHg PV Velocity Time Integral 20.7 cm LV E' Lateral Velocity 9.3 cm/s Mitral E to LV E' Lateral Ratio 10.9 LV E' Septal Velocity 8.6 cm/s Mitral E to LV E' Septal Ratio 11.8
--- NOTE | 2016-05-14 14:50 | Patient Discharge Instructions ---
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 Diet Continue normal diet: Yes Recommended Diet: Diabetic, Heart Healthy Activity Full Activity/No Limits: Yes Acute Coronary Syndrome Inclusion Criteria At DC or during hospital stay patient has or had the following: ACS DIAGNOSIS No Discharge Core Measures Meds if any: Prescribed or Continued at Discharge Meds if any: NOT Prescribed or Continued at Discharge Congestive Heart Failure Inclusion Criteria At DC or during hospital stay patient has or had the following: CHF DIAGNOSIS No Discharge Core Measures Meds if any: Prescribed or Continued at Discharge Meds if any: NOT Prescribed or Continued at Discharge Cerebrovascular accident Inclusion Criteria At DC or during hospital stay patient has or had the following: CVA/TIA Diagnosis No Discharge Core Measures Meds if any: Prescribed or Continued at Discharge Meds if any: NOT Prescribed or Continued at Discharge Venous thromboembolism Inclusion Criteria VTE Diagnosis No VTE Type NONE VTE Confirmed by (Test) NONE Discharge Core Measures - Per Current guidelines, there needs to be overlap - treatment for the first 5 days of Warfarin therapy. - If discharged on Warfarin prior to 5 days of - overlap therapy, the patient will need to be - assessed for post discharge needs including - *Post discharge parental anticoagulation - *Warfarin and/or parental anticoagulation education - *Follow up date to check INR post discharge At least 5 days overlap therapy as Inpatient No Meds if any: Prescribed or Continued at Discharge Note: Overlap Therapy is Warfarin and Anticoagulant Meds if any: NOT Prescribed or Continued at Discharge
--- NOTE | 2016-05-14 15:00 | Discharge Summary ---
Visit Information Visit Dates Admission Date: 05/13/16 Discharge Date: 05/16/16 Hospital Course Course Attending Physician: BETTINA WARREN MD Primary Care Physician: ZIA ASHLEY,[facility] Course: 60-year-old male with PMH of HTN, MIX2 (sp stent and quadruple bypass), NIDDM, HLD, opiate dependence on suboxone, presented to ED for weakness, shortness of breath, diaphoresis, heavy legs and arms on exertion, with feelings of heart racing. Initial EKG showed sinus bradycardia, in low 30s, which could be medication induced as pt takes nadolol and diltiazem, and BP of 95/51. HR and BP improved with glucagon and 1L NS given in ED. During our examination, his HR ranged between 55-60 and pt was feeling improved. There was also a concern for NSTEMI ( positive troponin of 0.19 in ED, positive history of RI). However we held off on starting heparin and the subsequent troponin trended down. Pt was admitted to ICU for symptomatic sinus bradycardia and hypotension, most likely medication induced. All his antihypertensives and AV rama block agents including nadolol and diltizem were held. His HR came up to the 60s. Echo done and showed normal size left ventricle. Mild concentric left ventricular hypertrophy. Normal left ventricular ejection fraction visually estimated at >60 %. Normal left ventricular wall motion. Mild left atrial dilatation. Mild tricuspid regurgitation. Trace mitral regurgitation. Discontinued home meds nadolol and diltiazem as per cardio and reduced lisinopril from 20mg to 10mg daily. His lyme ab came back positive and he was discharged on doxycycline 100mg PO BID for 2 weeks. Patient admits to having h/o rash with "tick bites" in the RUE and left groin about 3-4 months ago. He was treated for a fungal infection at that time but never received doxycycline. The positive troponin is most likely demand ischemia. Discharged on aspirin 81mg. He also desat to 88% on RA in the ED, subsequently placed on O2 via NC. On admission Na 133, K 5.9, Bun 32, Cr 1.2, glucose 353. The next morning improved to na 141,K3.9, bun 20, cr 0.8, glucose 108. Mag 1.5, repleted. Allergies: Coded Allergies: NO KNOWN ALLERGIES (08/04/11) Disposition Summary Disposition Principal Diagnosis: Bradycardia most likely due to medication Hypotension most likely due to medication Lyme disease Additional Diagnosis: Hypomagnesiumia Discharge Disposition: home or self care Discharge Instructions General Discharge Information Code Status: Full Code Patient's Diet: Diabetic diet Patient's Activity: As tolerated Follow-Up Instructions/Appts: Follow up with PCP and director telemetry in 1 week. Medications at Discharge Discharge Medications: Stop taking the following medications: Diltiazem HCl (Cardizem Cd) 360 MG CAP.ER.24H ORAL DAILY Qty = 90 Lisinopril (Lisinopril) 20 MG TABLET ORAL DAILY Qty = 30 Nadolol (Nadolol) 20 MG TABLET ORAL DAILY Qty = 30 Continue taking these medications: Triamterene/Hydrochlorothiazid (Triamterene-Hctz 37.5-25 MG Tb) 37.5 MG-25 MG TABLET 1 Tablet ORAL DAILY Qty = 30 Comments: Last Taken:05/16/16 Time:9:35A.M Rosuvastatin Calcium (Crestor) 40 MG TABLET 1 Tablet ORAL DAILY Qty = 30 Comments: Last Taken:05/15/16 Time: 4:09P.M Sitagliptin Phosphate (Januvia) 100 MG TABLET 1 Tablet ORAL DAILY Qty = 30 Comments: NOT GIVEN THIS ADMISSION Buprenorphine HCl/Naloxone HCl (Suboxone 8 MG-2 MG Sl Film) 8 MG-2 MG FILM 1 Strip SUBLINGUAL DAILY Qty = 45 Comments: Last Taken:NOT GIVEN THIS ADMISSION Time: Metformin HCl (Metformin HCl) 1,000 MG TABLET 1 Tablet ORAL TWICE DAILY Qty = 180 Comments: Last Taken:NOT GIVEN THIS ADMISSION Time: Glimepiride (Glimepiride) 1 MG TABLET 1 Tablet ORAL DAILY Qty = 180 Comments: Last Taken:NOT GIVEN THIS ADMISSION Time: Start taking the following new medications: Lisinopril (Lisinopril) 10 MG TABLET 10 Milligram ORAL DAILY Qty = 30 No Refills Doxycycline Hyclate (Doxycycline Hyclate) 100 MG TABLET 1 Tablet ORAL TWICE DAILY Qty = 28 No Refills Instructions: PLEASE AVOID SUNLIGHT FOR THE NEXT 2-3 WEEKS. Comments: Last Taken:NOT GIVEN DURING THIS ADMISSION Time: Aspirin (Ecotrin*) 81 MG TABLET.DR 1 Tablet ORAL DAILY Qty = 30 No Refills Comments: Last Taken:NOT GIVEN THIS ADMISSION Time: Copies To: GUSTAVO ASHLEY,DANY LIZARRAGA MD,PETER Attending MD Review Statement Documenting Attending: KELVIN ASHLEY,BETTINA
[2016-05-14 16:00] VITALS: BP 130/74
[2016-05-14 22:50] VITALS: BP 112/62
[2016-05-15 08:03] VITALS: BP 140/85
--- NOTE | 2016-05-15 13:15 | PN- Housestaff ---
Subjective Follow-up For: Follow-up Bradycardia and hypotension, likely medication related. Complaints: no complaints Tele-Events Since Last Visit: no overnight cardiac events Subjective: Patient is seen and examined at the bedside. He was not having any active complaints. Review of Systems Constitutional: Denies: no symptoms. Cardiovascular: Denies: no symptoms. Respiratory: Denies: no symptoms. Gastrointestinal: Denies: no symptoms. Genitourinary: Denies: no symptoms. Musculoskeletal: Denies: no symptoms. Objective Last 24 Hrs of Vital Signs/I&O Vital Signs Date Time Temp Pulse Resp B/P Pulse O2 O2 Flow FiO2 Ox Delivery Rate 05/15 1546 98.1 74 18 124/70 93 05/15 1240 85 128/70 05/15 0803 97.7 70 16 140/85 97 Room Air 05/14 2250 97.9 76 18 112/62 93 Room Air Intake & Output 05/15 1600 05/15 0800 05/15 0000 Intake Total 100 100 Output Total Balance 100 100 Intake, Oral 100 100 Physical Exam General Appearance: Alert, Oriented X3, Cooperative, No Acute Distress Cardiovascular: Regular Rate, Normal S1, Normal S2 Lungs: Clear to Auscultation, Normal Air Movement Abdomen: Soft, No Tenderness Neurological: Normal Gait, Normal Speech Extremities: No Clubbing, No Cyanosis, No Edema, Normal Pulses Vascular: Normal Pulses, Pulses Symmetrical Assessment/Plan Assessment: 60-year-old male with PMH of HTN, MIX2 (sp stent and quadruple bypass), NIDDM, HLD, opiate dependence on suboxone, presented to ED for weakness, shortness of breath, diaphoresis, heavy legs and arms on exertion, with feelings of heart racing. Initial EKG showed sinus bradycardia, in low 30s, which could be medication induced as pt takes nadolol and diltiazem, and BP of 95/51. HR and BP improved with glucagon and 1L NS. Pt might also have NSTEMI (positive troponin, positive history). No heparin drip started, and pt's troponin drifted down after the first one. Problem list- # Symptomatic sinus bradycardia could be medication induced # Positive troponin most likely demand ischemia # Hyponatremia, Elevated K,Bun,Cr, hyperglycemia # History of HTN and HLD # NIDDM Plan - Discharge tomorrow if there is no any overnight events. If patient started dating tachycardia, then we will restart patient on his home medication including Cardizem CD and if become hypertensive and add amlodipine 5 milligrams daily.We'll also discussed about restarting glimepiride/metformin/Januvia during discharge # Symptomatic sinus bradycardia most likely medication induced - Given glucagon X1 and 1L NS in ED - Desat to 88% on RA - Echocardiogram: Normal size left ventricle. Mild concentric left ventricular hypertrophy. Normal left ventricular ejection fraction visually estimated at >60 %. Normal left ventricular wall motion. Mild left atrial dilatation. Mild tricuspid regurgitation. Trace mitral regurgitation. * Hold nadolol and diltiazem * Pacer and atropine at bedside * lyme ab -positive, (please discuss with attending before discharge) * Keep on O2 via NC to keep spo2 > 92%, wean o2 as tolerated (desat to 88% on RA in ED) * Discussed with Dr. Pope. He advised to restart the patient on tablet losartan 10 milligrams once a day and start her on triamterene/ hydrochlorothiazide as home medication # Positive troponin 0.19, most likely demand ischemia. Pt had history of [place] at a young age, 33 (had stent), 43 (had quadruple bypass), with only jaw pain. He also has diabetes which could mask typical chest pain in ACS. * Serial EKG and trops negative * No heparin drip started # History of HTN and HLD * Continue statin * We started patient on lisinopril 10 milligrams and triamterene/ hydrochlorothiazide. # Hyponatremia, Elevated K,Bun,Cr, hyperglycemia resolved - On admission Na 133, K 5.9, Bun 32, Cr 1.2 , glucose 353 * Today, sodium 137, K-4.5, # Hypomag - Mag 1.7 * We'll continue to give magnesium 400 mgs twice a day, with target of Mg >2. # NIDDM * Hold home glimepiride, metformin januvia * Accucheck and Novolog ss * We'll also discussed about restarting glimepiride/metformin/Januvia during discharge # Hx of abdominal hernia # Hold home meds Suboxone Diet- consistent carbohydrate diet 2 DVT prophylaxis - ALP S/heparin CODE STATUS -FULL CODE Problem List: 1. Elevated troponin 2. Symptomatic sinus bradycardia Pain Ratin Pain Location: Not applicable Pain Goal: Remain pain free Pain Plan: Yeal-[id number]-[id number] Tomorrow's Labs & Rationales: none DVT/Prophylaxis: mechanical, pharmacological
[2016-05-15 15:46] VITALS: BP 124/70
--- NOTE | 2016-05-15 18:16 | PN- Cardiology ---
Subjective Subjective: The patient is doing well today with no symptoms. Heart rate and BP stable but BP increased to 140/80 and the patient has been off of all of his cardiac meds since admission. Objective Vital Signs and I&Os Vital Signs Date Time Temp Pulse Resp B/P Pulse O2 O2 Flow FiO2 Ox Delivery Rate 05/15 1546 98.1 74 18 124/70 93 05/15 1240 85 128/70 05/15 0803 97.7 70 16 140/85 97 Room Air 05/14 2250 97.9 76 18 112/62 93 Room Air Intake & Output 05/15 1600 05/15 0800 05/15 0000 05/14 1600 05/14 0800 05/14 0000 Intake Total 100 100 680 950 412 Output Total 800 600 450 Balance 100 100 -120 350 -38 Intake, IV 200 600 212 Intake, Oral 100 100 480 350 200 Number 0 0 0 Bowel Movements Output, Stool 0 Output, Urine 800 600 450 Patient 189 lb Weight Physical Exam: General Appearance Alert, Oriented X3, Cooperative, seems fatigued Skin No Significant Lesion HEENT Atraumatic Cardiovascular Normal S1, Normal S2 Lungs Clear to Auscultation, Normal Air Movement Abdomen Normal Bowel Sounds, Soft, No Tenderness, abdominal hernia Neurological Normal Speech Extremities No Edema Current Medications: Current Medications Sig/Luis Start time Last Medication Dose Route Stop Time Status Admin Acetaminophen 650 MG Q6P PRN 05/13 184 AC PO Acetaminophen 650 MG Q4P PRN 05/13 1845 AC PO Acetaminophen 1,000 MG Q4P PRN 05/13 1845 AC PO Atorvastatin Calcium 40 MG 1700 05/14 1700 AC 05/15 PO 1609 Insulin Aspart 0 TIDAC 05/14 0800 05/15 SC 1706 Lisinopril 10 MG DAILY 05/15 1030 AC 05/15 PO 1240 Magnesium Oxide 400 MG BID 05/15 1317 AC 05/15 PO 1442 Triamterene/HCTZ 1 CAP DAILY 05/15 1030 AC 05/15 PO 1201 Results Last 48 Hrs of Labs/Mics: Laboratory Tests 05/15/16 0645: Anion Gap 11, Estimated GFR > 60, BUN/Creatinine Ratio 20.0, Magnesium 1.7 05/14/16 1115: Troponin I 0.07 05/14/16 0500: Anion Gap 9, Estimated GFR > 60, Glucose 108 H, Calcium 9.5, Phosphorus 4.5, Magnesium 1.5 L, Total Bilirubin 0.5, AST 40, ALT 69, Troponin I 0.11 *H, Albumin 3.6 05/13/160: Troponin I 0.10 Microbiology 05/13 1916 UPPER RESP: Surveillance Culture - COMP Assessment/Plan Assessment/Plan Assessment: 1. Bradycardia and hypotension, likely medication related. 2. CAD, status post CABG and stents 3. HTN 4. DM 5. Opiate dependence on Suboxone Recommendations - Extended discussion with the patient - I am concerned that the patient's heart rate and BP will continue to rebound since he has been off of all of his preadmission meds. - Restart Lisinopril at 10 daily and HCTZ / triamterent - Reassess in AM. IF BP an issue at that point, add amlodipine 5 daily or Cardizem CD 120-180. - Discharge home tomorrow if stable with close followup with primary manager provider relations Dr Lorenzo as outpatient. Continue telemetry? Yes
[2016-05-15 23:00] VITALS: BP 98/48
[2016-05-16 08:00] VITALS: BP 100/60
--- NOTE | 2016-05-16 08:40 | PN- Housestaff ---
Subjective Follow-up For: Follow-up Bradycardia and hypotension, likely medication related. Tele-Events Since Last Visit: Sinus bradycardia, HR 58-71 Subjective: Patient is seen and examined at the bedside. No events reported overnight. Patient offers no new compalints. He states that all of the symptoms with which he presented on admission have completely resolved and he feels ready to go home. Denies any f/c, chest pain, dyspnea, palpitations, n/v/c/d, headache, dizziness. Review of Systems Constitutional: Reports: see HPI. Objective Last 24 Hrs of Vital Signs/I&O Vital Signs Date Time Temp Pulse Resp B/P Pulse O2 O2 Flow FiO2 Ox Delivery Rate 05/16 0800 97.6 78 20 100/60 96 Room Air 05/15 2300 98.0 72 18 98/48 96 Room Air 05/15 1546 98.1 74 18 124/70 93 05/15 1240 85 128/70 Intake & Output 05/16 1600 05/16 0800 05/16 0000 Intake Total 400 680 Output Total Balance 400 680 Intake, Oral 400 680 Physical Exam General Appearance: Alert, Oriented X3, Cooperative, No Acute Distress Other Physical Findings: Cardiovascular: Regular Rate, Normal S1, Normal S2 Lungs: Clear to Auscultation, Normal Air Movement Abdomen: Soft, No Tenderness Neurological: Normal Gait, Normal Speech Extremities: No Clubbing, No Cyanosis, No Edema, Normal Pulses Vascular: Normal Pulses, Pulses Symmetrical Current Medications: Current Medications Sig/Luis Start time Last Medication Dose Route Stop Time Status Admin Acetaminophen 650 MG Q6P PRN 05/13 1845 AC PO Acetaminophen 650 MG Q4P PRN 05/13 1845 AC PO Acetaminophen 1,000 MG Q4P PRN 05/13 1845 AC PO Atorvastatin Calcium 40 MG 1700 05/14 1700 AC 05/15 PO 1609 Insulin Aspart 0 TIDAC 05/14 0800 AC 05/16 SC 0824 Lisinopril 10 MG DAILY 05/15 1030 AC 05/15 PO 1240 Magnesium Oxide 400 MG BID 05/15 1317 AC 05/15 PO 2144 Triamterene/HCTZ 1 CAP DAILY 05/15 1030 AC 05/15 PO 1201 Assessment/Plan Assessment: 60-year-old male with PMH of HTN, MIX2 (sp stent and quadruple bypass), NIDDM, HLD, opiate dependence on suboxone, presented to ED for weakness, shortness of breath, diaphoresis, heavy legs and arms on exertion, with feelings of heart racing. Initial EKG showed sinus bradycardia, in low 30s, which could be medication induced as pt takes nadolol and diltiazem, and BP of 95/51. HR and BP improved with glucagon and 1L NS. Pt might also have NSTEMI (positive troponin, positive history). No heparin drip started, and pt's troponin drifted down after the first one. Problem list- # Symptomatic sinus bradycardia could be medication induced # Positive troponin most likely demand ischemia # Hyponatremia, Elevated K,Bun,Cr, hyperglycemia # History of HTN and HLD # NIDDM Plan - # Symptomatic sinus bradycardia most likely medication induced - Echocardiogram: Normal size left ventricle. Mild concentric left ventricular hypertrophy. Normal left ventricular ejection fraction visually estimated at >60 %. Normal left ventricular wall motion. Mild left atrial dilatation. Mild tricuspid regurgitation. Trace mitral regurgitation. * Discontinued home meds nadolol and diltiazem as per cardio * Reduce Lisnopril from 20mg to 10mg daily * No events reported overnight. Patient offers no new compalints. She reports feeling well with no issues. Remains afebrile and her leukocytosis has resolved. Denies any f/c, chest pain, dyspnea, palpitations, n/v/c/d, headache, dizziness. * Pacer and atropine at bedside * Keep on O2 via NC to keep spo2 > 92%, wean o2 as tolerated (desat to 88% on RA in ED) * Discussed with Dr. Pope. He advised to restart the patient on tablet losartan 10 milligrams once a day and start her on triamterene/ hydrochlorothiazide as home medication * Patient informed about positive lyme serology, insturcted to follow up outpatient with PCP # Positive Lyme disease Patient admits to having h/o rash with "tick bites" in the RUE and left groin about 3-4 months ago. He was treated for a fungal infection at that time but never received doxycycline. * Discharge on doxycycline 100mg PO BID for 2 weeks * Patient instructed to follow up outpatient # Positive troponin 0.19, most likely demand ischemia. Pt had history of SD at a young age, 33 (had stent), 43 (had quadruple bypass), with only jaw pain. He also has diabetes which could mask typical chest pain in ACS. * Serial EKG and trops negative * No heparin drip started # History of HTN and HLD * Continue statin * We started patient on lisinopril 10 milligrams and triamterene/ hydrochlorothiazide. # Hyponatremia, Elevated K,Bun,Cr, hyperglycemia resolved - On admission Na 133, K 5.9, Bun 32, Cr 1.2 , glucose 353 * Check BEP daily, replete as needed # Hypomag - Mag 1.7 on admission * Continue to give magnesium 400 mgs twice a day, with target of Mg >2. # NIDDM * Hold home glimepiride, metformin januvia * Accucheck and Novolog ss * We'll also discussed about restarting glimepiride/metformin/Januvia during discharge # Hx of abdominal hernia # Hold home meds Suboxone Diet- consistent carbohydrate diet 2 DVT prophylaxis - ALP S/heparin CODE STATUS -FULL CODE Problem List: 1. Symptomatic sinus bradycardia 2. Elevated troponin Pain Ratin Pain Location: 0 Pain Goal: Remain pain free Pain Plan: Mild path Tomorrow's Labs & Rationales: None
[2016-05-16 09:36] VITALS: BP 102/48
[2016-05-16] MEDS ORDERED: LISINOPRIL10 M1 PO (11:52)
[2016-05-16] MEDS ORDERED: DOXYCYCLINE HY100 M4 PO (12:12)
[2016-05-16] MEDS ORDERED: ASPIRIN EC81 M1 PO (13:00)
--- NOTE | 2016-05-16 13:03 | PN- Cardiology ---
See Addendum Subjective Subjective: * No complaints of chest discomfort, shortness of breath, lightheadedness or palpitations. * sinus rhythm * hemodynamically stable Objective Vital Signs and I&Os Vital Signs Date Time Temp Pulse Resp B/P Pulse O2 O2 Flow FiO2 Ox Delivery Rate 05/16 0936 78 102/48 05/16 0800 97.6 78 20 100/60 96 Room Air 05/15 2300 98.0 72 18 98/48 96 Room Air 05/15 1546 98.1 74 18 124/70 93 Intake & Output 05/16 1600 05/16 0800 05/16 0000 05/15 1600 05/15 0800 05/15 0000 Intake Total 400 680 100 100 Output Total Balance 400 680 100 100 Intake, Oral 400 680 100 100 Physical Exam: General: WD/ WN male in NAD; alert and oriented x 3 Neck: no JVD Heart: RRR w/o murmur Lungs: clear bilaterally Extremities: no edema Assessment/Plan Assessment/Plan * Okay to discharge patient to home with 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 Lorenzo. * Begin aspirin 81mg daily. * Stop Cardizem and nadolol and decrease Lisinopril to 10mg daily. No change in remaining pre-admission medications. Continue telemetry? Not applicable
== END 2016-05-16 13:30 | DRG 309 ==
LOC: ENRESERVDT → ENRESERVTM → ERH 14:56 → ERHI 17:07 → 1NO 17:07 → CRI 17:07 → ENPENDDIS 17:07 → CRI 19:20 → 1NO 05-14 20:29
PROVIDERS: Physician Assistant Medical; ADMIT Internal Medicine Cardiovascular Disease
DX: R00.1 Bradycardia, unspecified (principal); A69.20 Lyme disease, unspecified; I24.8 Other forms of acute ischemic heart disease; F11.20 Opioid dependence, uncomplicated; E87.1 Hypo-osmolality and hyponatremia; E87.5 Hyperkalemia; Z95.1 Presence of aortocoronary bypass graft; I25.10 Atherosclerotic heart disease of native coronary artery without angina pectoris; Z87.891 Personal history of nicotine dependence; E11.9 Type 2 diabetes mellitus without complications; Z79.84 Long term (current) use of oral hypoglycemic drugs; T46.1X5A Adverse effect of calcium-channel blockers, initial encounter; E78.5 Hyperlipidemia, unspecified; Z95.5 Presence of coronary angioplasty implant and graft; I10 Essential (primary) hypertension
CPT/HCPCS: 1NP; 1NSP; 86618; CCU; 36415; 82436; 93005; 93010; 93306; 96374; 99291; J1610